=== PATIENT | male | born 2005 | race Two or more races ===

== ENCOUNTER 2024-05-24 20:45 | Emergency (ER) | payer MEDICAID ==
[~2024-05-24] VITALS: Ht 177.8 cm; Wt 100.0 kg
[2024-05-24 20:50] VITALS: O2SAT 99
[2024-05-25 01:40] VITALS: BP 131/73; PULSE 74; RESP 18; TEMP 36.72516; O2SAT 100
== END 2024-05-25 01:42 | disposition home or self-care (01) ==
LOC: ER 20:45
DX: F41.9 Anxiety disorder, unspecified (principal); R07.89 Other chest pain
CPT/HCPCS: 71045; 93005; 99283